=== PATIENT | male | born 1990 | race Caucasian/White ===

== ENCOUNTER 2019-12-02 21:34 | Inpatient (IN) | payer MEDICAID, SELFPAY ==
--- NOTE | ~2019-12-02 | XR_ITS ---
EXAMINATION: XR tibia fibula RT 2V EXAM DATE: 12/02/2019 21:56 INDICATION: Initial encounter following injury, with pain of the right tibia/fibula. TECHNIQUE: Right tibia/fibula frontal and lateral projections obtained and reviewed. There is no denny or study for comparison. FINDINGS: Right tibial and fibular shafts unremarkable. There are no acute fractures or dislocations identified. There is no subcutaneous gas. The soft tissue is unremarkable. There are no radiopaq ue foreign bodies. IMPRESSION: 1. XR tibia fibula RT 2V exam without acute osseous findings. Reviewed, dictated and finalized at location A.
[2019-12-02 21:36] VITALS: BP 154/86; PULSE 55; RESP 19; TEMP 36.8; O2SAT 98
--- NOTE | 2019-12-02 21:58 | ED.LOWEXIN ---
HPI - Extremity Injury (Lower) General Chief Complaint: Extremity Injury, Lower Stated Complaint: right leg injury Time Seen by Provider: 12/02/19 21:56 History of Present Illness HPI Narrative: Healthy 29 yo male pres[place] with leg pain and injury. At 1700 today his right calf was crushed between a log and a wood chipping machine. He had severe pain initially, but was able to walk on it. The pain has continued to increase in severity. It is located through the entire foot and lower leg and radiates up the lateral thigh. He is not able to dorsiflex the foot. Slightly decreased sensation the top of his foot. Related Data Home Medications Medication Instructions Recorded Confirmed No Home Medications 12/02/19 12/02/19 Allergies Allergy/AdvReac Type Severity Reaction Status Date / Time No Known Allergies Allergy Verified 12/02/19 21:35 Review of Systems Review of Systems: All systems reviewed & are unremarkable except as noted in HPI and below Constitutional: Constitutional: Denies fever(s) Cardiovascular: Cardiovascular: Denies chest pain Respiratory: Respiratory: Denies dyspnea Gastrointestinal: Gastrointestinal: Denies abdominal pain and Denies nausea Musculoskeletal: Musculoskeletal: Denies back pain Neurologic: Reports numbness PMFSH Past Medical History Medical History Compartment syndrome of right lower extremity Marijuana abuse Social History Social History Smoking status: Never smoker Alcohol intake: never Substance use: never Gender identity (if verbalized by the patient): Male Sexual Orientation (if Verbalized by the Patient): Straight or Heterosexual Spiritual care concerns: No Exam Const: General: healthy appearing and alert Orientation/consciousness: patient oriented x3 Other: Mild distress HENMT: Head: normal to inspection Resp: Effort & Inspection: normal respiratory effort Auscultation: clear to auscultation bilaterally Cardio: Rate: regular rate Rhythm: regular rhythm Other: 1+ left radial pulse Skin: General skin exam: normal color Neuro: General: patient oriented x3, moves all extremities and no focal motor deficits Speech: normal speech Other: mildly decreased sensation to the dorsum of the left foot. Extrem: Other: Left calf is swollen, tense, exquisitely tender. Severe pain with passive dorsiflexion of the foot. Course Vital Signs Vital signs: Vital Signs Temperature 36.8 C 12/02/19 21:36 Pulse Rate 55 L 12/02/19 21:36 Respiratory Rate 19 12/02/19 21:36 Blood Pressure 154/86 H 12/02/19 21:36 Pulse Oximetry 98 12/02/19 21:36 Temperature 36.4 C 12/03/19 01:06 Pulse Rate 62 12/03/19 02:24 Respiratory Rate 11 L 12/03/19 01:50 Blood Pressure 127/79 12/03/19 01:50 Pulse Oximetry 94 12/03/19 01:50 MDM - Extremity Injury (Lower) MDM Narrative Medical decision making narrative: Clinically his presentation is very concerning for compartment syndrome. I contacted Dr. Mobley. He evaluated the patient and agrees. He will take him to the OR for fasciotomy Imaging Data Radiologist's impression: ITS Impressions Tibia/Fibula X-Ray 12/02/19 22:02 IMPRESSION: 1. XR tibia fibula RT 2V exam without acute osseous findings. Critical Care Time Critical Care Time Critical Care Time: Yes Total Critical Care Time: 45 Discharge Plan Discharge Clinical Impression: Traumatic compartment syndrome of left lower extremity Patient Disposition: Still a Patient Condition: Stable Interventions: Discharge Disposition Last Done: 12/02/19 23:52 IV Removed Last Done: 12/02/19 23:52 IV Stop Time Documented Last Done: 12/02/19 23:52 Discharge Date/Time: 12/03/19 00:03
[2019-12-02] MEDS: MORPHINE SULFATE 4 MG/ML INJ IV PUSH (23:01)
--- NOTE | 2019-12-02 23:06 | PC.NURSE ---
Dr Mobley at bedside to evaluate pt. Verbal report given to Mervin Gaines RN at this time.
[2019-12-02 23:48] VITALS: BP 152/74; PULSE 82; RESP 17; O2SAT 97
[2019-12-02] MEDS: CELECOXIB 200 MG CAPSULE PO (23:48)
--- NOTE | 2019-12-02 23:55 | PM.CNOR ---
Assessment and Plan Additional Plan Patient is a 29-year-old gentleman who at approximately 5:00 p.m. this afternoon and his right leg crushed between a log and a wood chipping machine. He had extreme pain initially was able to walk around and gradually his pain again became worse and worse as his right leg swelled in the calf. He presented to the emergency room in extreme pain at 9:30 p.m. His pain is poorly localized runs from the knee to the ankle. The log and machine impacted at the mid calf level. He reports slight decreased sensation the top of his foot. Denies any other injury. He had an x-ray tib fib right which showed no evidence of fracture. His past medical history is unremarkable. Does not smoke cigarettes. He reported to anesthesia that he did smoke some marijuana this morning. He takes no medications otherwise he has no known drug allergies and no medical problems. 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 He is alert and oriented. He cannot sit still as he is writhing in pain. He cannot tolerate having the leg extended fully. He has very firm anterior and lateral compartments of his right calf and they are tender. There is a bruise over the anteromedial mid junior without swelling. He has prominent enlargement of his calf on the right relative to left but the gastrocsoleus is somewhat soft still. He can tolerate passive dorsiflexion of his ankle and toes. He has extreme pain trying to actively dorsiflex his ankle or his toes. He can plantar flex his ankle and his toes without much discomfort. Passive plantar flexion of the ankle and inversion causes extreme pain running up and down the calf. He has mild dullness in light touch sensation on the top of his right foot when compared to the left. Plantar sensation was symmetric. He had a 2+ dorsalis pedis pulse palpable. There is no swelling or edema in the foot or ankle. Impression clinically, patient has progressively worsening compartment syndrome involving the anterior and lateral compartments of the right calf. I have discussed options with him and I would recommend proceeding directly with fasciotomy of these 2 compartments. He does not have overt clinical evidence for superficial or deep posterior compartment syndromes. I would recommend that while he is under anesthesia we measure compartment pressures in those 2 compartments and proceed as indicated but I am doubtful that the compartment pressures in those 2 compartments will be elevated. It is possible that compartment syndrome might develop in those 2 compartments and he will need monitoring. I have explained that we would likely leave the fasciotomy incision or incisions open and I explained that there will be a cut about 10 cm long the mid lateral calf possibly the mid medial calf and usually if the swelling goes down in a few days these can be closed primarily and if not skin graft may be necessary. Risk of infection and sensory nerve injury discussed. We will proceed as discussed. History of Present Illness HPI Consult date: 12/02/19 Chief complaint: right leg injury [facility] Social History Social History Gender identity (if verbalized by the patient): Male Meds Home Medications and Allergies Home Medications Medication Instructions Recorded Confirmed Type No Home Medications 12/02/19 12/02/19 History Allergies Allergy/AdvReac Type Severity Reaction Status Date / Time No Known Allergies Allergy Verified 12/02/19 21:35 Vital Signs Vital Signs - 24 hr 12/02/19 21:36 12/02/19 23:48 Temperature 36.8 C Pulse Rate 55 L 82 Respiratory Rate 19 17 Blood Pressure 154/86 H 152/74 H Pulse Oximetry 98 97 Results Labs Labs: All other labs normal.
[2019-12-03] VITALS (14 sets, daily range): BP systolic 102–132; BP diastolic 45–84; PULSE 55–98; RESP 11–20; TEMP 36.3–36.9; O2SAT 92–99; BMI 23.8
[2019-12-03] MEDS: MORPHINE SULFATE 4 MG/ML INJ (00:04)
--- NOTE | 2019-12-03 00:04 | PC.NURSE ---
vrbo to gIve morphine 4 mg ivp x1 from dr lockwood prior to leaving for OR
[2019-12-03] MEDS: LACTATED RINGERS 1,000 ML 30 ML IV CONT ×2 (00:06→01:17)
[2019-12-03] MEDS: ceFAZolin SODIUM 1 GM VIAL 2 GM IV PUSH (00:16)
--- NOTE | 2019-12-03 00:17 | WPDANESEPPF ---
Anes - Initial Pre Proc Eval Procedure: Operation Date: 12/02/19 23:45 Proposed Procedures p Fasciotomy Lower Extremity - Cj Mobley MD Date/Time: 12/03/19 00:17 Surgeon: Cj Mobley MD Pre Op Diagnosis: right leg injury Patient Data Age: 29 Gender: M Height: 5 ft 5 in Weight: 59 kg Last Vital Signs Temp 36.8 C 12/02/19 21:36 Pulse 82 12/02/19 23:48 Resp 17 12/02/19 23:48 BP 152/74 H 12/02/19 23:48 Pulse Ox 97 12/02/19 23:48 Allergies Allergy/AdvReac Type Severity Reaction Status Date / Time No Known Allergies Allergy Verified 12/02/19 21:35 Home Medications Medication Instructions Recorded Confirmed Type No Home Medications 12/02/19 12/02/19 History Patient hx anesthesia problems: none Family hx anesthesia problems: none [facility] Past Medical History Medical History (Updated 12/03/19 @ 00:18 by Kale Barraza MD) Compartment syndrome of right lower extremity Marijuana abuse Social History Social History Gender identity (if verbalized by the patient): Male Anes - Eval Final PreProcedure Day of Procedure 12/03/19 00:17 Patient weight: normal Heart: regular rate and rhythm Lungs: clear to auscultation Airway: Mallampati scale class II Neurological: alert and oriented Last oral intake: >/= 8 hours ASA classification: III Emergent: yes Anesthetic plan: proceed Anesthesia type and monitoring: general ETT and standard monitoring Informed Consent: The patient's anesthetic plan and its attendant risks and benefits were discussed with the patient/family/POA. Questions were solicited and answers provided to the satisfaction of the patient/family/POA.
--- NOTE | 2019-12-03 01:09 | PM.PROC ---
Procedure Note - Detailed Date of procedure: 12/03/19 Pre-op diagnosis: right leg injury Crush injury right leg with anterior and lateral compartment compartment syndromes Post-op diagnosis: same Procedure performed: fasciotomy anterior and lateral compartments right lower leg Description of procedure: patient brought to the operating room and general anesthesia was administered. His right leg was scrubbed with a chlorhexidine cloth and we have prepped with a small ChloraPrep over the medial calf and used the Aditya compartment pressure monitor and measured the deep compartment at 48 mm and the superficial posterior compartment at 38 mm. I felt this was borderline. His systolic pressure was 120 came and with some of that is due to the pain he was and. His lateral compartments for rock hard. We proceeded to prep and drape the right leg in the usual fashion the forefoot and toes covered without band. A 10 cm longitudinal incision was made centered over the intermuscular septum between the anterolateral compartments in the mid lateral calf. Dissection was carried down to the intermuscular septum there and we expose the fascia over the anterior and lateral compartments both proximally and distally. Using head lamp for illumination under the skin flaps the anterior fasciotomy was performed all the way up and down. Approximately this opened up a large hematoma in the proximal aspect the anterior compartment that was proximal to the incision and there was a moderate amount of tearing of the tibialis anterior muscle tissue there. There was no tendinous portion of this muscle I did not think suture repair would be feasible as it would not hold. The hematoma was evacuated this did leave a noticeable defect between the swollen tibialis anterior in the region of the incision defect in the muscle proximally or was crushed. The lateral compartment appeared slightly dusky and was firm and we proceeded with lateral compartment fasciotomy proximally and distally. Did this under direct vision distally stain on the fascia to avoid superficial branch of peroneal nerve. The muscle bulged outward fair amount. I then put on new outer gloves and avoiding any contamination of the field, I used the Aditya compartment pressure gauge on the side again as I notice that the medial calf felt much softer and after injecting the 0.3 cc of saline 0 in properly as before the deep posterior compartment pressure was now only 25 and the posterior inserted the superficial posterior compartment only 21 so I did not feel that fasciotomy on the medial side the posterior compartments was indicated. Outer gloves were again changed and once again irrigated the wound with antibiotic solution we did have the tourniquet up for 15 minutes for optimal visualization and this was the released and hemostasis was confirmed. There was no active bleeding that I can see. The skin was too tight to close laterally so was left open covered with Xeroform and soft bulky noncompressive dressing posterior splint. He was transferred postop recovery room good additional complications. He did receive 2 g of Ancef preop. Surgeon: Cj Mobley MD
--- NOTE | 2019-12-03 02:36 | PC.NURSE ---
This patient, Eladio Charles, was admitted to 2 Medical Room 259-01. Patient/family oriented to hospital policies and general routines including ID bracelet, bed and alarms, visiting hours, pain management, procedures, bathroom and other care routines, personal items, smoking policy, room service/diet, and visiting hours. Valuables list has been completed. Information on how to activate the Rapid Response Team has been discussed. Patient/Family are encouraged to report perceived risks to care and to ask questions if they do not understand what they are told or what they should do.
[2019-12-03] MEDS: DEXTROSE 5%/0.45% SOD CHL 1,000 ML 100 ML IV CONT (05:55)
[2019-12-03] MEDS: ACETAMINOPHEN 500 MG TABLET 1000 MG PO ×3 (05:56→17:15)
--- NOTE | 2019-12-03 06:43 | PC.NURSE ---
Spoke with Dr. Mobley regarding consult for hospitalist. Consult was ordered accidently and Dr. Ordaz wanted the consult cancelled.
--- NOTE | 2019-12-03 06:45 | PC.NURSE ---
At 0300 Ice was placed on Rt. calf until gel packs are ready for use.
--- NOTE | 2019-12-03 08:01 | WPDANESPN ---
Anes - Prog Note Post-Op Date/Time: 12/03/19 08:01 Cardiovascular status: normal Respiratory status: normal Airway patency: baseline Mental status: baseline Post-Op hydration status: normal Vital Signs: Last Vital Signs Temp 36.9 C 12/03/19 02:47 Pulse 63 12/03/19 04:13 Resp 12 12/03/19 02:47 BP 116/71 12/03/19 02:47 Pulse Ox 95 12/03/19 02:47 Pain Score (VAS): no c/o pain I/O: Intake & Output 12/02/19 12/03/19 12/03/19 23:59 07:59 15:59 Intake Total 300 Output Total 700 Balance -400 Post-procedural complaints: none Patient Feedback: Patient satisfied with anesthetic care.
[2019-12-03] MEDS: polyethylene glycoL 3350 17 GM POWD.PACK PO (08:34)
[2019-12-03] MEDS: CELECOXIB 200 MG CAPSULE PO ×2 (08:34→17:15)
[2019-12-03] MEDS: DOCUSATE SODIUM 100 MG CAPSULE PO ×2 (08:34→17:15)
[2019-12-03] MEDS: SENNA/DOCUSATE SODIUM TABLET 2 TAB PO ×2 (08:34→17:16)
--- NOTE | 2019-12-03 13:11 | PM.PNORT ---
Progress Note: A&P Additional Plan Patient Is doing very well now 12 hours after fasciotomy of the anterior and lateral compartments of his right leg. Is able to wiggle his toes up and down comfortably now which is an improvement compared to early this morning he states. On exam he has normal light touch sensation on the top of his foot and on the bottom of his foot and the toes. He is not really having any significant discomfort at rest. We are giving him scheduled 5 mg Percocet and that is held this pain completely. He complains of being a little bit drowsy from the medication and will change the oxycodone to p.r.n. and keep him on the oral Tylenol for now. We also have him on Celebrex which should aid in the reduction of inflammation and control his pain. He does have some serosanguineous drainage draining out the posterior aspect of the splint. We will reinforce the splint with ABDs. I discussed with him the fact that he does have some crush type tearing of the proximal muscle belly of the tibialis anterior muscle. I do not feel that that can be reliably sutured. His far enough proximal at I would expect that he will have reasonable dorsiflexion and function but not normal. I would expect That he has some tibialis anterior attached to the tibia fibula interosseous membrane distal to where the defect was that was well proximal to the mid calf fasciotomy incision. I have discussed options with him with respect to addressing the fasciotomy incision. By the end of the procedure is muscle color looked normal already. It was a little bit purplish when we started. I think he has had symptoms for a short enough duration that he may not have muscle necrosis and he may not have as much swelling has some patients will have with more advanced ischemic muscle damage. If that is the case the swelling may diminish rather quickly and this may allow was to close the skin primarily. I spoke with Dr. Lopez about this gentleman's case in some detail and he stated he would be happy to assist with wound management if the skin is left open and that it can heal by secondary intention many times with a 10 cm fasciotomy incision and if not, a skin graft could be utilized. I am going to plan to take him to the operating room in 2 days for irrigation debridement and assessment of the degree of swelling. If the swelling is indeed minimal and the skin appears to be in the be closed easily and I will proceed with that at that time and if not we will treat the wound with secondary intention with the understanding that it might heal on its own or may require skin graft. Subjective Subjective Date/Time Seen: 12/03/19 13:11 Objective Data Vital Signs Vital Signs: Vital Signs - 24 hr 12/02/19 21:36 12/02/19 23:48 12/03/19 01:06 Temperature 36.8 C 36.4 C Pulse Rate 55 L 82 98 Respiratory Rate 19 17 15 Blood Pressure 154/86 H 152/74 H 132/82 Pulse Oximetry 98 97 98 12/03/19 01:20 12/03/19 01:35 12/03/19 01:50 Temperature Pulse Rate 60 74 56 L Respiratory Rate 12 14 11 L Blood Pressure 122/71 117/84 127/79 Pulse Oximetry 99 96 94 12/03/19 01:52 12/03/19 02:17 12/03/19 02:24 Temperature 36.8 C 36.8 C Pulse Rate 63 68 62 Respiratory Rate 16 16 Blood Pressure 119/65 118/69 Pulse Oximetry 92 94 12/03/19 02:47 12/03/19 04:13 12/03/19 07:37 Temperature 36.9 C 36.3 C L Pulse Rate 55 L 63 72 Respiratory Rate 12 17 Blood Pressure 116/71 109/55 L Pulse Oximetry 95 95 12/03/19 08:00 Temperature Pulse Rate 58 L Respiratory Rate Blood Pressure Pulse Oximetry Intake/Output Intake/Output: Intake & Output 11/30/19 12/01/19 12/02/19 12/03/19 23:59 23:59 23:59 23:59 Intake Total 796 Output Total 700 Balance 96 Meds/Results Medications: Active Medications Generic Name Dose Route Start Last Admin Trade Name Freq PRN Reason Stop Dose Admin Acetaminophen 1,000 mg 12/03/19 06:00 12/03/19 11:25 Tylenol Tablet
[2019-12-03 15:09] LABS: Hematocrit 39.3 % (42.0-52.0); Hemoglobin 13.5 g/dL (14.0-18.0); Mean Corpuscular HGB Conc 34.4 g/dl (32-36); Mean Corpuscular Hemoglobin 31.2 pg (26-34); Mean Corpuscular Volume 90.8 fl (80-100); Mean Platelet Volume 11.1 fl (7.4-10.4); Platelet Count Result 165 k/mm3 (150-375); Red Blood Count 4.33 M/mm3 (4.6-6.20); Red Cell Distribution Width 12.5 % (11.5-14.5); White Blood Count 9.8 K/mm3 (4.5-10.0)
[2019-12-03 15:21] LABS: Anion Gap 6 mmol/L (8-16); Blood Urea Nitrogen 15 mg/dL (9-20); Carbon Dioxide 25 mmol/L (22-30); Chloride 104 mmol/L (98-107); Estimated CRCL calculation 117 ml/min; Estimated Glomerular Filt Rate > 60; Glucose 132 mg/dL (75-110); Sodium 135 mmol/L (137-145)
[2019-12-03] MEDS: CYCLOBENZAPRINE HCL 10 MG TABLET PO (21:09)
[2019-12-04] MEDS: ACETAMINOPHEN 500 MG TABLET 1000 MG PO ×4 (00:11→18:01)
[2019-12-04 02:00] VITALS: BP 105/48; PULSE 60; RESP 12; TEMP 36.7; O2SAT 98
[2019-12-04 06:00] VITALS: BP 107/46; PULSE 65; RESP 16; TEMP 36.4; O2SAT 99
[2019-12-04] MEDS: SENNA/DOCUSATE SODIUM TABLET 2 TAB PO ×2 (08:21→18:01)
[2019-12-04] MEDS: DOCUSATE SODIUM 100 MG CAPSULE PO ×2 (08:21→18:01)
[2019-12-04] MEDS: polyethylene glycoL 3350 17 GM POWD.PACK PO (08:21)
[2019-12-04] MEDS: CELECOXIB 200 MG CAPSULE PO ×2 (08:21→18:00)
--- NOTE | 2019-12-04 08:34 | PM.PNORT ---
Progress Note: A&P Additional Plan Pt doing well, having min pain overall. Able to actively ROM his toes without pain, no swelling in toes. plan to go back to OR tomorrow for I and D and poss wd. closure. discussed this with pt this am, may not be able to close incisions and then will be left open to heal by secondary intension <MARILIA Underwood - Last Filed: 12/04/19 08:36> Subjective Subjective Date/Time Seen: 12/04/19 08:34 <MARILIA Underwood - Last Filed: 12/04/19 08:36> Objective Data Vital Signs Vital Signs: Vital Signs - 24 hr 12/03/19 14:00 12/03/19 18:00 12/03/19 22:00 Temperature 36.8 C 36.6 C 36.7 C Pulse Rate 72 70 68 Respiratory Rate 20 19 16 Blood Pressure 108/46 L 108/52 L 102/45 L Pulse Oximetry 97 98 99 12/04/19 02:00 12/04/19 06:00 Temperature 36.7 C 36.4 C Pulse Rate 60 65 Respiratory Rate 12 16 Blood Pressure 105/48 L 107/46 L Pulse Oximetry 98 99 <MARILIA Underwood Last Filed: 12/04/19 08:36> Intake/Output Intake/Output: Intake & Output 12/01/19 12/02/19 12/03/19 12/04/19 23:59 23:59 23:59 23:59 Intake Total 1986 400 Output Total 1575 Balance 411 400 <MARILIA Underwood Last Filed: 12/04/19 08:36> Meds/Results Medications: Active Medications Generic Name Dose Route Start Last Admin Trade Name Freq PRN Reason Stop Dose Admin Acetaminophen 1,000 mg 12/03/19 06:00 12/04/19 05:59 Tylenol Tablet PO 1,000 mg Q6HR CHRISTIE Administration Celecoxib 200 mg 12/03/19 08:00 12/04/19 08:21 Celebrex PO 200 mg BIDWM CHRISTIE Administration Cyclobenzaprine HCl 10 mg 12/03/19 01:52 12/03/19 21:09 Flexeril PO 10 mg Q8H PRN Administration Muscle Spasm Docusate Sodium 100 mg 12/03/19 09:00 12/04/19 08:21 Colace Capsule PO 100 mg BID CHRISTIE Administration Gentamicin Sulfate 325 mg/ 108.125 mls @ 100 mls/hr 12/05/19 11:55 Dextrose IVPB 12/05/19 12:59 ONCE ONE Magnesium Hydroxide 30 ml 12/03/19 01:52 Milk Of Magnesia PO BID PRN Constipation Oxycodone HCl 5 mg 12/03/19 01:52 12/04/19 08:30 Roxicodone Ir Tablet PO 5 mg Q4H PRN Administration Pain Rated 7-10 Polyethylene Glycol 17 gm 12/03/19 09:00 12/04/19 08:21 Miralax PO 17 gm QAM CHRISTIE Administration Senna/Docusate Sodium 2 tab 12/03/19 09:00 12/04/19 08:21 Senokot S Tablet PO 2 tab BID CHRISTIE Administration <MARILIA Underwood - Last Filed: 12/04/19 08:36> Radiology Results: ITS Impressions Tibia/Fibula X-Ray 12/02/19 22:02 IMPRESSION: 1. XR tibia fibula RT 2V exam without acute osseous findings. <MARILIA Underwood - Last Filed: 12/04/19 08:36> Labs Labs: Laboratory Results - last 24 hr 12/03/19 12/03/19 14:56 14:56 WBC 9.8 RBC 4.33 L Hgb 13.5 L Hct 39.3 L MCV 90.8 MCH 31.2 MCHC 34.4 RDW 12.5 Plt Count 165 MPV 11.1 H Sodium 135 L Potassium 4.0 Chloride 104 Carbon Dioxide 25 Anion Gap 6 L BUN 15 Creatinine 0.70 Estim Creat Clear Calc 117 Estimated GFR > 60 Glucose 132 H Calcium 8.0 L <MARILIA Underwood - Last Filed: 12/04/19 08:36>
[2019-12-04 10:00] VITALS: BP 102/58; PULSE 68; RESP 16; TEMP 36.6; O2SAT 99
[2019-12-04 14:00] VITALS: BP 108/55; PULSE 65; RESP 16; TEMP 36.7; O2SAT 99
[2019-12-04 18:00] VITALS: BP 115/57; PULSE 59; RESP 18; TEMP 36.9; O2SAT 100
[2019-12-04 21:48] VITALS: BP 105/56; PULSE 55; RESP 16; TEMP 36.6; O2SAT 99
[2019-12-05] VITALS (11 sets, daily range): BP systolic 107–136; BP diastolic 55–78; PULSE 52–81; RESP 11–19; TEMP 36.3–36.6; O2SAT 98–100
[2019-12-05] MEDS: LACTATED RINGERS 1,000 ML 30 ML IV CONT (12:30)
--- NOTE | 2019-12-05 12:52 | WPDANESEPPF ---
Anes - Initial Pre Proc Eval Procedure: Operation Date: 12/02/19 23:45 Proposed Procedures p Fasciotomy Lower Extremity - Cj Mobley MD Operation Date: 12/05/19 14:00 Proposed Procedures p Wound Exploration and Debridement with Closure Right Leg - Cj Mobley MD Date/Time: 12/05/19 12:52 Surgeon: Cj Mobley MD Pre Op Diagnosis: right leg injury Patient Data Age: 29 Gender: M Height: 1.65 m Weight: 65 kg Last Vital Signs Temp 36.6 C 12/05/19 10:00 Pulse 52 L 12/05/19 10:00 Resp 14 12/05/19 10:00 BP 129/66 12/05/19 10:00 Pulse Ox 98 12/05/19 10:00 Allergies Allergy/AdvReac Type Severity Reaction Status Date / Time No Known Allergies Allergy Verified 12/02/19 21:35 Home Medications Medication Instructions Recorded Confirmed Type No Home Medications 12/02/19 12/02/19 History Patient hx anesthesia problems: none Family hx anesthesia problems: none [facility] Past Medical History Medical History Compartment syndrome of right lower extremity Marijuana abuse Social History Social History Smoking status: Never smoker Alcohol intake: never Substance use: never Gender identity (if verbalized by the patient): Male Sexual Orientation (if Verbalized by the Patient): Straight or Heterosexual Spiritual care concerns: No Anes - Eval Final PreProcedure Day of Procedure 12/05/19 12:52 Patient weight: normal Heart: regular rate and rhythm Lungs: clear to auscultation and normal air movement Airway: Mallampati scale class II Neurological: alert and oriented Last oral intake: >/= 8 hours ASA classification: III Emergent: no Anesthetic plan: proceed Anesthesia type and monitoring: general LMA Informed Consent: The patient's anesthetic plan and its attendant risks and benefits were discussed with the patient/family/POA. Questions were solicited and answers provided to the satisfaction of the patient/family/POA.
--- NOTE | 2019-12-05 14:07 | WPDHPUPDATE1 ---
History and Physical Update Update Date/Time: 12/05/19 14:07 History and Physical has been reviewed, including an updated exam of the patient. There are NO changes in the patient's condition. Risks, benefits, and alternatives have been discussed and questions answered. Patient agrees to proceed with procedure.
[2019-12-05] MEDS: GENTAMICIN SULFATE INJ 325 MG in DEXTROSE 5% 100 ML 100 MG IVPB (14:13)
[2019-12-05] MEDS: ceFAZolin SODIUM 1 GM VIAL 2 GM IV PUSH (14:28)
[2019-12-05] MEDS: ceFAZolin SODIUM 1 GM VIAL 3 GM IRRIGATION (14:31)
--- NOTE | 2019-12-05 15:02 | PM.PROC ---
Procedure Note - Detailed Date of procedure: 12/05/19 Pre-op diagnosis: right leg injury Status post fasciotomy anterior and lateral compartment syndrome right leg Post-op diagnosis: same Procedure performed: wound inspection minimal muscle debridement right tibialis anterior muscle, wound left open Description of procedure: patient brought to the operating room and general anesthesia was administered. This dressing was applied removed. The right leg scrubbed with Betadine scrub draped usual fashion. He received 5 milligrams/kilogram of gentamicin preoperatively as well as 2 g of Ancef. Fibrin this debris was removed with a sponge and the muscle inspected and loupe magnification. Lateral compartment musculature was pink and healthy. The tibialis anterior which had been crushed proximal to the fasciotomy incision and had some muscle separation showed a little bit of dusky necrotic material which was carefully debrided removing basically just the superficial proximal edge and there rest of the tissue looked very healthy. The tibialis anterior muscle that this location of the 8 cm fasciotomy incision was quite swollen as well as somewhat bulbous because of the separation of the proximal fibers proximal to the fasciotomy incision and the incision was going to be far too tight to safely try to close. We irrigated the wound with 3 L of Ancef solution. There was no residual hematoma in the proximal defect and a T of defect had already somewhat filled in with swelling of the tibialis anterior believe. The wound was covered with an Adaptic with the anticipation that he would be changing the dressing daily home in a similar fashion. We will plan to allow the wound to heal by secondary intention unless progression of wound healing fails to a occur in which case patient would be referred to Dr. Lopez for possible skin graft. Anesthesia: GLMA Surgeon: Cj Mobley MD Maintenance Parts Technician: Bertha Drains: No Pathology: none sent Complications: No immediate complications Condition: stable Disposition: PACU
--- NOTE | 2019-12-05 15:40 | SUR.PHASEI ---
1530-DR. ADEN AT BEDSIDE, DISCUSSING SURGERY AND FOLLOW PLAN.
--- NOTE | 2019-12-05 16:01 | SUR.PHASEI ---
1548-PT OFF MONITORS, READY TO TRANSPORT, UNABLE TO PROCESS ORDERS R/T DR. ADEN HAS PT PROFILE LOCKED OUT. PT AWAKE,COMFORTABLE AT LEVEL 5 PAIN. 1555-DR. ADEN'S PA SPEAKING WITH IT DEPT REGARDING LOCK OUT, THEY WILL RELEASE IN A FEW MINUTES. PT WITH INCREASE IN DISCOMFORT, LEVEL 6, WILL REMEDICATE. NO OTHER CHANGES. 1600-SPOKE WITH [employer], THEY WILL RETRY UNLOCKING.
--- NOTE | 2019-12-05 16:21 | PC.NURSE ---
Received patient from OR via bed with OR staff. Patient settled into room. Rates pain 5/10 to right leg. Dressing D/I. Some bleeding noted on lower layer of dressing but no bleeding through dressing at this time. Patient ordering food. Denies nausea.
[2019-12-05] MEDS: SENNA/DOCUSATE SODIUM TABLET 2 TAB PO (16:30)
[2019-12-05] MEDS: DOCUSATE SODIUM 100 MG CAPSULE PO (16:30)
--- NOTE | 2019-12-05 17:42 | PC.NURSE ---
All items requested by Dr. Mobley for discharge have been ordered and are to be delivered by central supply this evening 12/05/19 and will be placed at the bedside.
[2019-12-05] MEDS: ACETAMINOPHEN 500 MG TABLET 1000 MG PO ×2 (17:44→23:27)
[2019-12-05] MEDS: CEPHALEXIN 500 MG CAPSULE PO ×2 (17:45→23:28)
[2019-12-06 05:46] VITALS: BP 106/63; PULSE 54; RESP 18; TEMP 36.5; O2SAT 98
[2019-12-06] MEDS: ACETAMINOPHEN 500 MG TABLET 1000 MG PO ×2 (05:58→12:34)
[2019-12-06] MEDS: CEPHALEXIN 500 MG CAPSULE PO ×2 (05:58→12:34)
[2019-12-06] MEDS: polyethylene glycoL 3350 17 GM POWD.PACK PO (09:04)
[2019-12-06] MEDS: SENNA/DOCUSATE SODIUM TABLET 2 TAB PO (09:04)
[2019-12-06 10:00] VITALS: BP 124/69; PULSE 61; RESP 16; TEMP 36.6; O2SAT 100
--- NOTE | 2019-12-06 17:29 | PC.NURSE ---
Dressing changed prior to patient discharging and he took video for reference. Tolerated well.
--- NOTE | 2019-12-13 11:00 | PM.DS ---
DS: Admitting Diagnosis Admitting Diagnosis Admitting Diagnosis: right leg injury DS: Summary Time Spent with Patient Time attestation: patient is a 29-year-old male who had his right leg crushed between a falling tree trunk and a log splitting machine earlier in the day of 12/02/2019 any developed compartment syndrome of the anterolateral compartments and was brought to the operating room for a fasciotomy of the anterior and lateral compartments. After the fasciotomy compartment pressures in the deep posterior and superficial posterior compartments were low. He was brought back to the operating room on 12/05/2023 inspection and debridement of the muscle. The muscle looked viable but was still markedly swollen and there is no way to consider close fasciotomy wound. Decision was made to allow the wound to heal by secondary intention. I did consult with Dr. Lopez over the telephone and he expressed his willingness to provide a skin graft if patient did not have reasonable progress with wound edge contraction and secondary closure on its own. Patient's clinical course was that his severe excruciating pain was immediately relieved following the fasciotomy and when I saw him in the morning after he was able to actively dorsiflex the toes and ankle and did not have pain with stretch and plantar flexion. He had always been able to plantar flex the toes and had absent pain with passive dorsiflexion. With slight numbness over the dorsum of the foot did completely resolved by the next morning. He was discharged with instructions to change the dressing daily and dressings were provided to him. Follow-up will be in my office in 1 week. Discharge Plan Discharge Attending physician on discharge: Cj Mobley Consulting providers: Guanaco Lopes ; Cornelio Bello Discharging Clinician: Cj Mobley Anticipated Discharge Date/Time: 12/06/19 11:00 Patient Disposition: Home, Self-Care Activity: no shower Diet: as tolerated Wound Care Instructions: follow printed instructions Discharge Instructions: Patient will be nonweightbearing on the right leg. Change the dressing once daily. Remove all dressings, apply Adaptic to the open wound followed by a stack of partially on folded 4 x 4 gauze sponges. Wrap with a 4 in soft roll to hold the gauze sponges in place. Put an ABD behind the heel to provide extra cushion between the heel and the hard splint and applied the splint with a roll of 6 in Rin to have the splint support the foot. If you start developing spreading redness in the skin around the wound foul smelling drainage from around the muscle please call or go to the emergency room. Call [phone] on Sunday to schedule appointment to come in and see Dr. Mobley at the office in [facility] on Sunday for wound inspection. Try to keep the right leg elevated when possible. Wiggle the toes frequently. Patient Instructions: Antibiotic Form, Compartment Syndrome (DC), Pain Management (DC), Fasciotomy (DC) Stand Alone Forms: General Discharge Information Follow-up/Referrals: PHYSICIAN,OUTREACH DIRECTOR [Primary Care Provider] - Cj Mobley MD [Physician] - Discharge Medications: New sennosides-docusate sodium [Senokot-S] 8.6-50 mg Tablet 1 tab PO BID Qty: 30 RF: 0 acetaminophen 500 mg Tablet 1,000 mg PO Q6HR Qty: 1000 RF: 0 cephalexin 500 mg Capsule 500 mg PO Q6HR Qty: 10 RF: 0 oxycodone 5 mg Tablet 5 mg PO Q4H PRN (Reason: Pain Rated 7-10) Qty: 20 RF: 0 No Action No Home Medications RF: 0 Date of admission: 12/03/19 01:52 Primary Care Provider: PHYSICIAN,OUTREACH DIRECTOR Admitting Provider: Cj Mobley Discharge Date/Time: 12/06/19 15:00 Attending physician on admission: Cj Mobley Condition: Stable
== END 2019-12-06 15:00 | disposition home or self-care (01) | DRG 317 ==
LOC: ANHED 22:02 → ANHSURGERY 23:56 → ANH2MED 12-03 02:48
PROVIDERS: Admitting Provider Orthopaedic Surgery; Emergency Provider Emergency Medicine; Visit Provider Orthopaedic Surgery
PROC: 0KDS0ZZ Extraction of Right Lower Leg Muscle, Open Approach (ICD-10-PCS; principal; 2019-12-05 14:00)
DX: T79.A21A Traumatic compartment syndrome of right lower extremity, initial encounter (principal); W23.0XXA Caught, crushed, jammed, or pinched between moving objects, initial encounter; Y93.H9 Activity, other involving exterior property and land maintenance, building and construction; Y99.0 Civilian activity done for income or pay
CPT/HCPCS: 36415; 73590; 80048; 85027; 96361; 96374; 96375; 97161; 99285; A9270; J0330; J0690; J1100; J1170; J1580; J2250; J2270; J2405; J2704; J3010; J7120

== ENCOUNTER 2020-06-05 11:48 | Emergency (ER) | payer BC, SELFPAY ==
--- NOTE | 2020-06-05 11:54 | ED.SKABFB ---
HPI - Skin/Abscess/Foreign Bdy General Chief complaint: Skin/Abscess/Foreign Body Stated complaint: bumps cover body Time Seen by Provider: 06/05/20 11:54 Source: patient and RN notes reviewed History of Present Illness HPI narrative: Patient is a 29-year-old male who presents the urgent care with complaints of a rash or possible bug bites all over. Patient states that started yesterday and he had had a pest control come out and look at his home and did not find any type of obvious passed in the home . Patient states that no one else that lives in the home has any type of rash. 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 Patient reports of areas to the ankles, abdomen, bilateral hands and face. Patient states that he has been putting apple cider vinegar on the areas without any improvement. No other acute complaints. No acute distress noted. Patient aware of the plan of care. Some parts of this dictation were generated by voice recognition software and may contain typographical and/or grammatical inaccuracies. Related Data Allergies Allergy/AdvReac Type Severity Reaction Status Date / Time No Known Allergies Allergy Verified 06/05/20 12:11 Review of Systems Review of Systems: Narrative: CONSTITUTIONAL: Denies fever, chills, or sweats. EYES: Denies visual changes, redness, or discharge. ENT: Denies rhinorrhea, congestion, sore throat, or otalgia. CARDIOVASCULAR: Denies chest pain, palpitations, or edema. RESPIRATORY: Denies cough or dyspnea. GASTROINTESTINAL: Denies abdominal pain, nausea, vomiting, or diarrhea. GENITOURINARY: Denies dysuria or hematuria. SKIN: Reports of itchy red rash or bug bites all over MUSCULOSKELETAL: Denies back pain, joint pain, or myalgia. NEUROLOGIC: Denies headache, numbness, or weakness. All other systems reviewed are negative, except as documented in HPI. FOR[facility]LY [facility] Past Medical History Medical History (Updated 06/05/20 @ 12:19 by LUÍS Ardon) Compartment syndrome of right lower extremity Marijuana abuse Social History Social History Smoking status: Never smoker Alcohol intake: never Substance use: never Gender identity (if verbalized by the patient): Male Spiritual care concerns: No Comments At the time of my signature, I reviewed and agree with the nursing past medical, surgical, social, and family history. There is no relevant family history pertinent to the patient complaint. Exam Narrative: Exam Narrative: GENERAL: This is a well-nourished, well-developed patient, in no apparent distress. HEAD: normocephalic, atraumatic. EYES: PERRL. Sclera clear/white. Vision is grossly intact. EARS: External ears normal NOSE: External nose normal with no obvious nasal discharge, nares without redness, no rhinorrhea. THROAT: Mucous membranes moist NECK: Neck supple SKIN: Pruritic erythemic welted dermatitis noted to the abdomen, bilateral hands, bilateral ankles and scattered on the face NEURO: awake, alert, and oriented to person, place and time. There were no obvious focal neurologic abnormalities. EXTREMITIES: No clubbing, cyanosis, or edema. Course Vital Signs Vital signs: Vital Signs Temperature 97.7 F 06/05/20 12:17 Pulse Rate 71 06/05/20 12:17 Respiratory Rate 16 06/05/20 12:17 Blood Pressure 126/80 06/05/20 12:17 Pulse Oximetry 99 06/05/20 12:17 Temperature 97.7 F 06/05/20 12:17 Pulse Rate 71 06/05/20 12:17 Respiratory Rate 16 06/05/20 12:17 Blood Pressure 126/80 06/05/20 12:17 Pulse Oximetry 99 06/05/20 12:17 Reviewed MDM - Skin/Abscess/Foreign Bdy MDM Narrative Medical decision making narrative: Advised the patient complete steroid regimen as prescribed. Be sure to eat and drink with the medication. May use Benadryl or other antihistamine [id number] as needed for itch relief. Use prescription cream
[2020-06-05 12:17] VITALS: BP 126/80; PULSE 71; RESP 16; TEMP 36.5; O2SAT 99
== END 2020-06-05 12:25 | disposition home or self-care (01) ==
PROVIDERS: Emergency Provider Nurse Practitioner Family
DX: L23.7 Allergic contact dermatitis due to plants, except food (principal); T79.A21A Traumatic compartment syndrome of right lower extremity, initial encounter; X58.XXXA Exposure to other specified factors, initial encounter
CPT/HCPCS: 99213; G0463